=== PATIENT | male | born 1955 | race African-American/Black ===

== ENCOUNTER 2018-03-29 09:59 | Inpatient (IN) | payer MEDICARE, OTHER ==
[~2018-03-29] VITALS: Ht 175.3 cm; Wt 75.7 kg
[2018-03-29] MEDS ORDERED: ACETAMINOPHEN 325MG TABLET PO STA (10:20)
[2018-03-29] MEDS ORDERED: SODIUM CHLORIDE 0.9% 1,000 ML IV ONE (10:20)
[2018-03-29 11:23] LABS: CLARITY URINE CLOUDY (CLEAR); COLOR URINE YELLOW (YELLOW); KETONES URINE NEGATIVE (NEGATIVE); LEUKOCYTE ESTERASE URINE 3+ (NEGATIVE); NITRITE URINE NEGATIVE (NEGATIVE); OCCULT BLOOD URINE 3+ (NEGATIVE); PROTEIN URINE 3+ (NEGATIVE); SPECIFIC GRAVITY URINE 1.015 (1.005-1.030); UROBILINOGEN URINE 0.2 E.U./dL (0.2-1.0)
[2018-03-29] MEDS ORDERED: CEFTRIAXONE 1 G PREMIX 50 ML IV ONE (12:15)
[2018-03-29 13:00] LABS: HEMATOCRIT. 30.5 % (42.0-52.0); HEMOGLOBIN. 10.5 g/dL (14.0-18.0); MEAN CORPUSCULAR VOLUME 84.1 fL (80.0-94.0); MEAN PLATELET VOLUME 8.6 fl (7.4-10.4); PLATELET 258 x1000/uL (130-400); RED BLOOD CELL COUNT 3.63 mill/uL (4.7-6.1); RED CELL DISTRIBUTION WIDTH 14.3 % (11.6-14.6)
[2018-03-29 13:05] LABS: CHLORIDE 109 mEq/L (98-107)
[2018-03-29 13:36] LABS: PLATELET ESTIMATE NORMAL
[2018-03-29 13:37] LABS: PROTHROMBIN TIME 10.1 sec (9.1-11.1)
[2018-03-29] MEDS ORDERED: MAGNESIUM/ALUMINUM HYDROXIDE/SIMETHICONE 30ML UDC PO PRN (16:00)
[2018-03-29] MEDS ORDERED: LORAZEPAM 2MG/ML CPJ IV PRN (16:00)
[2018-03-29] MEDS ORDERED: DIPHENHYDRAMINE 50MG/ML VIAL IV PRN (16:00)
[2018-03-29] MEDS ORDERED: GUAIFENESIN 200MG/10ML SUGAR FREE UDC PO PRN (16:00)
[2018-03-29] MEDS ORDERED: HYDROCODONE/ACETAMINOPHEN 5/325MG TABLET PO PRN (16:00)
[2018-03-29] MEDS: SODIUM CHLORIDE 0.45% 1,000 ML IV SCH (16:00)
[2018-03-29] MEDS ORDERED: ENOXAPARIN 40MG/0.4ML SYR SUBCUT SCH (16:00)
[2018-03-29] MEDS ORDERED: ONDANSETRON HCL 4MG/2ML INJ IV PRN (16:00)
[2018-03-29] MEDS ORDERED: ACETAMINOPHEN 325MG TABLET PO PRN (16:00)
[2018-03-29] MEDS ORDERED: IPRATROPIUM/ALBUTEROL 0.5-3(2.5)MG/3ML NEB INH PRN (16:00)
[2018-03-29] MEDS ORDERED: DOCUSATE SODIUM 100MG CAPSULE PO PRN (16:00)
[2018-03-29 16:20] VITALS: BP 130/65
[2018-03-29] MEDS ORDERED: MORPHINE SULFATE 4 MG/ML CPJ (NOT FOR IM USE) IV PRN (16:30)
[2018-03-29 16:32] VITALS: BP 125/65
[2018-03-29] MEDS ORDERED: LEVOFLOXACIN 500MG PREMIX 100 ML IV NR (17:30)
[2018-03-29 20:00] VITALS: BP 144/78
[2018-03-29] MEDS ORDERED: DEXTROSE 50% WATER 50ML SYRINGE IV PRN (20:30)
[2018-03-29] MEDS: INSULIN LISPRO 100 UNITS/ML SUBCUT SCH (21:00)
[2018-03-29] MEDS ORDERED: NA PHOS,M-B/NA PHOS,DI-BA ENEMA 118ML PR PRN (21:00)
[2018-03-29] MEDS: BLOOD SUGAR DIAGNOSTIC STRIP TEST SCH (21:50)
[2018-03-30 00:01] VITALS: BP 153/74
[2018-03-30 04:00] VITALS: BP 129/69
[2018-03-30 07:01] LABS: CHLORIDE 111 mEq/L (98-107)
[2018-03-30 07:10] LABS: LDL CHOLESTEROL 91 mg/dL (5-100); T4 FREE 0.94 ng/dL (0.76-1.46)
[2018-03-30 07:13] LABS: HDL CHOLESTEROL 49 mg/dL (40-59)
[2018-03-30 07:16] LABS: BASOPHILS % 0.2 % (0.0-2.0); EOSINOPHILS % 1.7 % (0.0-5.0); HEMATOCRIT. 29.2 % (42.0-52.0); HEMOGLOBIN. 10.2 g/dL (14.0-18.0); LYMPHOCYTES % 12.4 % (20.0-50.0); MEAN CORPUSCULAR HEMOGLOBIN 29.7 pg (28.0-32.0); MEAN CORPUSCULAR VOLUME 84.6 fL (80.0-94.0); MEAN PLATELET VOLUME 8.6 fl (7.4-10.4); MONOCYTES % 9.2 % (2.0-8.0); NEUTROPHILS % 76.5 % (40.0-76.0); PLATELET 215 x1000/uL (130-400); RED BLOOD CELL COUNT 3.45 mill/uL (4.7-6.1); RED CELL DISTRIBUTION WIDTH 14.1 % (11.6-14.6)
[2018-03-30] MEDS: BLOOD SUGAR DIAGNOSTIC STRIP TEST SCH ×4 (07:20→20:43)
[2018-03-30] MEDS: INSULIN LISPRO 100 UNITS/ML SUBCUT SCH ×4 (07:50→20:47)
[2018-03-30 08:08] VITALS: BP 142/76
[2018-03-30] MEDS: SODIUM CHLORIDE 0.45% 1,000 ML IV SCH ×2 (08:47→19:38)
[2018-03-30 12:20] LABS: CREATINE KINASE 94 IU/L (39-308)
[2018-03-30 12:28] VITALS: BP 108/66
[2018-03-30] MEDS: LEVOFLOXACIN 250MG PREMIX 50 ML IV SCH (13:30)
[2018-03-30 16:30] VITALS: BP 148/78
[2018-03-30] MEDS ORDERED: LEVOFLOXACIN 250MG PREMIX 50 ML IV SCH (17:00)
[2018-03-30 20:00] VITALS: BP 149/72
[2018-03-30] MEDS: ENOXAPARIN 30MG/0.3ML SYR SUBCUT SCH (20:43)
[2018-03-31] VITALS (8 sets, daily range): BP systolic 147–177; BP diastolic 74–89
[2018-03-31] MEDS: CLONIDINE 0.1MG TABLET PO PRN ×2 (04:21→12:39)
[2018-03-31] MEDS: SODIUM CHLORIDE 0.45% 1,000 ML IV SCH ×2 (04:57→09:19)
[2018-03-31 06:44] LABS: BASOPHILS % 0.4 % (0.0-2.0); EOSINOPHILS % 3.3 % (0.0-5.0); HEMOGLOBIN. 9.6 g/dL (14.0-18.0); LYMPHOCYTES % 12.1 % (20.0-50.0); MEAN CORPUSCULAR VOLUME 84.1 fL (80.0-94.0); MEAN PLATELET VOLUME 8.4 fl (7.4-10.4); MONOCYTES % 7.6 % (2.0-8.0); NEUTROPHILS % 76.6 % (40.0-76.0); PLATELET 241 x1000/uL (130-400); RED BLOOD CELL COUNT 3.33 mill/uL (4.7-6.1); RED CELL DISTRIBUTION WIDTH 13.9 % (11.6-14.6)
[2018-03-31] MEDS: INSULIN LISPRO 100 UNITS/ML SUBCUT SCH ×4 (06:48→20:17)
[2018-03-31 07:06] LABS: PHOSPHORUS 3.5 mg/dL (2.5-4.9)
[2018-03-31] MEDS: BLOOD SUGAR DIAGNOSTIC STRIP TEST SCH ×4 (08:19→20:12)
[2018-03-31] MEDS: LEVOFLOXACIN 250MG PREMIX 50 ML IV SCH (13:38)
[2018-03-31] MEDS: ENOXAPARIN 30MG/0.3ML SYR SUBCUT SCH (20:12)
[2018-04-01] VITALS: BP 166/77
[2018-04-01] MEDS: SODIUM CHLORIDE 0.45% 1,000 ML IV SCH ×3 (00:56→21:25)
[2018-04-01 04:00] VITALS: BP 162/80
[2018-04-01] MEDS: CLONIDINE 0.1MG TABLET PO PRN ×3 (04:46→22:56)
[2018-04-01 06:13] LABS: ANTI-NUCLEAR ANTIBODIES DIRECT Negative (Negative); COMPLEMENT C3 123 mg/dL (82-167)
[2018-04-01] MEDS: BLOOD SUGAR DIAGNOSTIC STRIP TEST SCH ×4 (06:51→21:23)
[2018-04-01 07:23] LABS: HEMATOCRIT 29.4 % (42.0-52.0); HEMOGLOBIN 10.3 g/dL (14.0-18.0); MEAN CORPUSCULAR HEMOGLOBIN 29.1 pg (28.0-32.0); MEAN CORPUSCULAR VOLUME 82.7 fL (80.0-94.0); PLATELET 239 x1000/uL (130-400); RED BLOOD CELL COUNT 3.55 mill/uL (4.7-6.1); RED CELL DISTRIBUTION WIDTH 13.8 % (11.6-14.6)
[2018-04-01] MEDS: INSULIN LISPRO 100 UNITS/ML SUBCUT SCH ×4 (07:50→21:50)
[2018-04-01 08:00] VITALS: BP 175/56
[2018-04-01 12:00] VITALS: BP 177/89
[2018-04-01] MEDS: LEVOFLOXACIN 250MG TABLET PO SCH (12:11)
[2018-04-01 16:00] VITALS: BP 159/73
[2018-04-01 20:25] VITALS: BP 199/85
[2018-04-01] MEDS: ENOXAPARIN 30MG/0.3ML SYR SUBCUT SCH (21:24)
[2018-04-02 00:38] VITALS: BP 154/82
[2018-04-02 04:00] VITALS: BP 187/91
[2018-04-02] MEDS: CLONIDINE 0.1MG TABLET PO PRN ×2 (06:12→17:10)
[2018-04-02] MEDS: BLOOD SUGAR DIAGNOSTIC STRIP TEST SCH ×3 (06:25→17:20)
[2018-04-02] MEDS: INSULIN LISPRO 100 UNITS/ML SUBCUT SCH ×3 (07:50→17:31)
[2018-04-02 07:56] VITALS: BP 179/93
[2018-04-02 11:55] VITALS: BP 183/88
[2018-04-02] MEDS: LEVOFLOXACIN 250MG TABLET PO SCH (13:31)
[2018-04-02 16:03] VITALS: BP 180/86
[2018-04-02] MEDS ORDERED: INFLUENZA VIRUS VACCINE 0.5ML SYR IM ONE (17:15)
[2018-04-02 18:59] VITALS: BP 165/93
== END 2018-04-02 20:15 | DRG 871 ==
LOC: ER 10:06 → 6WST 13:18 → ENRESERV 15:28
PROVIDERS: ADMIT Internal Medicine; ATTEND Internal Medicine
DX: A41.9 Sepsis, unspecified organism (principal); N17.0 Acute kidney failure with tubular necrosis; N39.0 Urinary tract infection, site not specified; I69.351 Hemiplegia and hemiparesis following cerebral infarction affecting right dominant side; E87.1 Hypo-osmolality and hyponatremia; E11.22 Type 2 diabetes mellitus with diabetic chronic kidney disease; E86.9 Volume depletion, unspecified; I12.9 Hypertensive chronic kidney disease with stage 1 through stage 4 chronic kidney disease, or unspecified chronic kidney disease; N18.9 Chronic kidney disease, unspecified; R19.7 Diarrhea, unspecified; D64.9 Anemia, unspecified
CPT/HCPCS: 36415; 70450; 71045; 76770; 80048; 80053; 80061; 81003; 82550; 82570; 82962; 83036; 83605; 83735; 84100; 84156; 84439; 84443; 84484; 85025; 85027; 85610; 86038; 86160; 87040; 87077; 87086; 87186; 90686; 93005; 96365; 97161; 99285; C1893; J0696; J1200; J1650; J1815; J1956; J2060; J7030

== ENCOUNTER 2018-06-14 15:25 | Emergency (ER) | payer MEDICARE, MEDICAID ==
[~2018-06-14] VITALS: Ht 175.3 cm; Wt 76.0 kg
[2018-06-14] MEDS ORDERED: PIPERACILLIN/TAZ 3.375G PREMIX 50 ML IV ONE (23:00)
[2018-06-15 00:08] VITALS: BP 156/77
== END 2018-06-15 01:32 | disposition home or self-care (01) ==
LOC: ER 15:25
DX: S90.421A Blister (nonthermal), right great toe, initial encounter (principal); E11.9 Type 2 diabetes mellitus without complications; I10 Essential (primary) hypertension; Z86.73 Personal history of transient ischemic attack (TIA), and cerebral infarction without residual deficits; X50.9XXA Other and unspecified overexertion or strenuous movements or postures, initial encounter; Y93.89 Activity, other specified; Y92.238 Other place in hospital as the place of occurrence of the external cause; Y99.8 Other external cause status
CPT/HCPCS: 73660; 82962; 96365; 99284; J2543; A4315

== ENCOUNTER 2018-09-28 13:42 | Inpatient (IN) | payer MEDICARE, MEDICAID ==
[~2018-09-28] VITALS: Ht 172.7 cm; Wt 69.9 kg
[2018-09-28] MEDS ORDERED: SODIUM CHLORIDE 0.9% 1,000 ML IV ONE (14:00)
[2018-09-28 14:32] LABS: CHLORIDE 110 mEq/L (98-107)
[2018-09-28 14:36] LABS: BASOPHILS % 0.8 % (0.0-2.0); EOSINOPHILS % 2.8 % (0.0-5.0); ETHANOL BLOOD < 10 mg/dL; HEMOGLOBIN. 12.2 g/dL (14.0-18.0); LYMPHOCYTES % 17.7 % (20.0-50.0); MEAN CORPUSCULAR HEMOGLOBIN 28.6 pg (28.0-32.0); MEAN CORPUSCULAR VOLUME 84.2 fL (80.0-94.0); MEAN PLATELET VOLUME 7.5 fl (7.4-10.4); NEUTROPHILS % 73.7 % (40.0-76.0); PLATELET 319 x1000/uL (130-400); RED BLOOD CELL COUNT 4.28 mill/uL (4.7-6.1); RED CELL DISTRIBUTION WIDTH 14.3 % (11.6-14.6)
[2018-09-28 14:38] LABS: D-DIMER 0.57 mg/L FEU (<0.50); PARTIAL THROMBOPLASTIN TIME 32.4 sec (23.4-31.0); PROTHROMBIN TIME 10.2 sec (9.1-11.1)
[2018-09-28 14:41] LABS: CREATINE KINASE 72 IU/L (39-308)
[2018-09-28 15:14] LABS: CLARITY URINE CLEAR (CLEAR); COLOR URINE YELLOW (YELLOW); KETONES URINE NEGATIVE (NEGATIVE); LEUKOCYTE ESTERASE URINE NEGATIVE (NEGATIVE); NITRITE URINE NEGATIVE (NEGATIVE); OCCULT BLOOD URINE TRACE (NEGATIVE); PROTEIN URINE 2+ (NEGATIVE); SPECIFIC GRAVITY URINE 1.009 (1.005-1.030); UROBILINOGEN URINE 0.2 E.U./dL (0.2-1.0)
[2018-09-28 15:48] LABS: *AMPHETAMINES SCREEN URINE NEGATIVE (NEGATIVE); *BARBITURATES SCREEN URINE NEGATIVE (NEGATIVE); *BENZODIAZEPINES SCREEN URINE NEGATIVE (NEGATIVE); *COCAINE SCREEN URINE NEGATIVE (NEGATIVE)
[2018-09-28 15:49] LABS: CANNABINOID URINE SCREEN NEGATIVE (NEGATIVE); METHADONE URINE SCREEN NEGATIVE (NEGATIVE); OPIATES URINE SCREEN PRESUMTIVE POSITIVE (NEGATIVE); PHENCYCLIDINE URINE SCREEN NEGATIVE (NEGATIVE)
[2018-09-28] MEDS ORDERED: SODIUM CHLORIDE 0.9% 1,000 ML IV SCH (22:07)
[2018-09-28] MEDS ORDERED: ONDANSETRON HCL 4MG/2ML INJ IV PRN (22:15)
[2018-09-28] MEDS ORDERED: ACETAMINOPHEN 650MG SUPP PR PRN (22:15)
[2018-09-28] MEDS ORDERED: DEXTROSE 50% WATER 50ML SYRINGE IV PRN ×2 (22:15)
[2018-09-28] MEDS: CLONIDINE 0.1MG TABLET PO PRN (23:43)
[2018-09-29] VITALS (7 sets, daily range): BP systolic 155–170; BP diastolic 73–83
[2018-09-29] MEDS: SODIUM CHLORIDE 0.45% 1,000 ML IV SCH (01:00)
[2018-09-29] MEDS: BLOOD SUGAR DIAGNOSTIC STRIP TEST SCH ×4 (06:23→20:24)
[2018-09-29] MEDS: INSULIN LISPRO 100 UNITS/ML SUBCUT SCH ×4 (06:23→20:24)
[2018-09-29 07:02] LABS: CHLORIDE 110 mEq/L (98-107)
[2018-09-29 07:18] LABS: BASOPHILS % 0.6 % (0.0-2.0); EOSINOPHILS % 2.5 % (0.0-5.0); HEMATOCRIT. 33.7 % (42.0-52.0); HEMOGLOBIN. 11.7 g/dL (14.0-18.0); LYMPHOCYTES % 16.1 % (20.0-50.0); MEAN CORPUSCULAR HEMOGLOBIN 28.9 pg (28.0-32.0); MEAN CORPUSCULAR VOLUME 83.4 fL (80.0-94.0); MEAN PLATELET VOLUME 7.5 fl (7.4-10.4); MONOCYTES % 5.5 % (2.0-8.0); NEUTROPHILS % 75.3 % (40.0-76.0); PLATELET 304 x1000/uL (130-400); RED BLOOD CELL COUNT 4.04 mill/uL (4.7-6.1); RED CELL DISTRIBUTION WIDTH 14.2 % (11.6-14.6)
[2018-09-29 07:26] LABS: AMYLASE 94 IU/L (25-115)
[2018-09-29 07:27] LABS: PHOSPHORUS 3.3 mg/dL (2.5-4.9)
[2018-09-29 07:28] LABS: LDL CHOLESTEROL 116 mg/dL (5-100)
[2018-09-29 07:29] LABS: HDL CHOLESTEROL 58 mg/dL (40-59)
[2018-09-29 07:31] LABS: CREATINE KINASE 85 IU/L (39-308)
[2018-09-29 07:32] LABS: T4 FREE 1.06 ng/dL (0.76-1.46)
[2018-09-29 11:35] LABS: T4 FREE 1.16 ng/dL (0.76-1.46)
[2018-09-29 12:01] LABS: FOLIC ACID (FOLATE) SERUM >20 ng/mL ng/mL (>5.38)
[2018-09-29 12:12] LABS: VITAMIN B12 SERUM 1163 pg/mL (211-911)
[2018-09-29] MEDS: CLOPIDOGREL 75MG TABLET PO SCH (15:45)
[2018-09-29] MEDS: LISINOPRIL 10MG TABLET PO SCH (20:24)
[2018-09-29] MEDS: ATORVASTATIN CALCIUM 40MG TABLET PO SCH (20:24)
[2018-09-29] MEDS: AMLODIPINE 5MG TABLET PO SCH (20:24)
[2018-09-30] VITALS: BP 169/83
[2018-09-30] MEDS: CLONIDINE 0.1MG TABLET PO PRN (01:01)
[2018-09-30] MEDS: SODIUM CHLORIDE 0.45% 1,000 ML IV SCH (03:46)
[2018-09-30 04:00] VITALS: BP 164/78
[2018-09-30] MEDS: BLOOD SUGAR DIAGNOSTIC STRIP TEST SCH ×4 (06:26→20:34)
[2018-09-30] MEDS: INSULIN LISPRO 100 UNITS/ML SUBCUT SCH ×4 (06:26→20:34)
[2018-09-30 08:17] VITALS: BP 154/81
[2018-09-30] MEDS: CLOPIDOGREL 75MG TABLET PO SCH (09:45)
[2018-09-30] MEDS: AMLODIPINE 5MG TABLET PO SCH (09:45)
[2018-09-30] MEDS: LISINOPRIL 10MG TABLET PO SCH (09:45)
[2018-09-30 10:20] LABS: BASOPHILS % 0.8 % (0.0-2.0); EOSINOPHILS % 2.8 % (0.0-5.0); HEMATOCRIT. 31.6 % (42.0-52.0); HEMOGLOBIN. 10.8 g/dL (14.0-18.0); LYMPHOCYTES % 20.1 % (20.0-50.0); MEAN CORPUSCULAR HEMOGLOBIN 28.3 pg (28.0-32.0); MEAN PLATELET VOLUME 7.3 fl (7.4-10.4); MONOCYTES % 7.6 % (2.0-8.0); NEUTROPHILS % 68.7 % (40.0-76.0); PLATELET 282 x1000/uL (130-400); RED BLOOD CELL COUNT 3.81 mill/uL (4.7-6.1)
[2018-09-30] MEDS ORDERED: DEXT 5%/0.45% NACL 500ML 500 ML IV ONE (11:00)
[2018-09-30 16:00] VITALS: BP 116/72
[2018-09-30] MEDS: NIFEDIPINE XL 90MG TAB PO SCH (16:08)
[2018-09-30 20:00] VITALS: BP 145/76
[2018-09-30] MEDS ORDERED: ACETAMINOPHEN 325MG TABLET PO PRN (20:00)
[2018-09-30] MEDS: METOPROLOL TARTRATE 25MG TABLET PO SCH (20:33)
[2018-09-30] MEDS: LISINOPRIL 20MG TABLET PO SCH (20:34)
[2018-09-30] MEDS: ATORVASTATIN CALCIUM 40MG TABLET PO SCH (20:34)
[2018-10-01] VITALS: BP 127/71
[2018-10-01 04:00] VITALS: BP 151/73
[2018-10-01] MEDS: BLOOD SUGAR DIAGNOSTIC STRIP TEST SCH ×2 (06:45→11:49)
[2018-10-01] MEDS: INSULIN LISPRO 100 UNITS/ML SUBCUT SCH ×2 (06:45→12:32)
[2018-10-01 06:51] LABS: BASOPHILS % 0.8 % (0.0-2.0); EOSINOPHILS % 1.9 % (0.0-5.0); HEMOGLOBIN. 11.8 g/dL (14.0-18.0); LYMPHOCYTES % 17.2 % (20.0-50.0); MEAN CORPUSCULAR HEMOGLOBIN 28.6 pg (28.0-32.0); MEAN CORPUSCULAR VOLUME 82.3 fL (80.0-94.0); MEAN PLATELET VOLUME 7.3 fl (7.4-10.4); MONOCYTES % 5.5 % (2.0-8.0); NEUTROPHILS % 74.6 % (40.0-76.0); PLATELET 320 x1000/uL (130-400); RED BLOOD CELL COUNT 4.13 mill/uL (4.7-6.1); RED CELL DISTRIBUTION WIDTH 14.1 % (11.6-14.6)
[2018-10-01 08:00] VITALS: BP 146/75
[2018-10-01] MEDS: CLOPIDOGREL 75MG TABLET PO SCH (09:31)
[2018-10-01] MEDS: NIFEDIPINE XL 90MG TAB PO SCH (09:32)
[2018-10-01] MEDS: METOPROLOL TARTRATE 25MG TABLET PO SCH (09:32)
[2018-10-01] MEDS: LISINOPRIL 20MG TABLET PO SCH (09:33)
[2018-10-01 12:00] VITALS: BP 114/68
[2018-10-01 17:50] VITALS: BP 146/75
== END 2018-10-01 18:36 | DRG 682 ==
LOC: ER 13:42 → 5WST 16:03 → ENRESERV 22:30
PROVIDERS: ADMIT Family Medicine Adult Medicine; ATTEND Family Medicine Adult Medicine
DX: N17.9 Acute kidney failure, unspecified (principal); G92 Toxic encephalopathy; E11.52 Type 2 diabetes mellitus with diabetic peripheral angiopathy with gangrene; I69.351 Hemiplegia and hemiparesis following cerebral infarction affecting right dominant side; I70.261 Atherosclerosis of native arteries of extremities with gangrene, right leg; E44.0 Moderate protein-calorie malnutrition; I70.202 Unspecified atherosclerosis of native arteries of extremities, left leg; F03.90 Unspecified dementia, unspecified severity, without behavioral disturbance, psychotic disturbance, mood disturbance, and anxiety; N18.9 Chronic kidney disease, unspecified; E11.22 Type 2 diabetes mellitus with diabetic chronic kidney disease; E78.00 Pure hypercholesterolemia, unspecified; I13.10 Hypertensive heart and chronic kidney disease without heart failure, with stage 1 through stage 4 chronic kidney disease, or unspecified chronic kidney disease; I25.10 Atherosclerotic heart disease of native coronary artery without angina pectoris; Z95.5 Presence of coronary angioplasty implant and graft; Z74.01 Bed confinement status; I25.2 Old myocardial infarction; I69.322 Dysarthria following cerebral infarction; Z68.23 Body mass index [BMI] 23.0-23.9, adult
CPT/HCPCS: 36415; 70551; 71045; 76700; 80048; 80061; 80076; 80305; 80307; 80320; 80329; 82140; 82150; 82550; 82607; 82746; 82962; 83036; 83735; 84100; 84439; 84443; 84481; 84484; 85379; 92610; 93005; 93923; 93970; 96360; 96361; 97163; 97166; 99291; J1815; J7030; G0480